=== PATIENT | male | born 1960 | race Caucasian/White ===

== ENCOUNTER 2023-11-29 12:29 | Inpatient (IN) | payer OTHER, SELFPAY ==
[2023-11-29 12:38] VITALS: BP 83/45; BP 85/55; PULSE 113; PULSE 115; RESP 15; TEMP 37.2; O2SAT 97; BMI 15.7
--- NOTE | 2023-11-29 12:53 | PC.NURSE ---
BP noted to be low on arrival to ED, Dr Grimaldo made aware.
--- NOTE | 2023-11-29 12:57 | ED_ITS ---
HPI - Fall General Chief Complaint: Fall Stated Complaint: UNWITT FALL, -LOC, -HS PER EMS Time Seen by Provider: 11/29/23 12:50 Source: patient and other Mode of arrival: EMS Limitations: other (Clinical condition) History of Present Illness HPI Narrative: This is a 63yom who is BIBEMS for evaluation after a fall. EMS states patient has a history of stage 4 liver cancer. EMS states patient was discharged from the hospital yesterday into hospice and was home for 1 day. EMS states patient was found today between a bureau and bed. Patient states his name, month and location of hospital. Patient unable to state event preceeding hospital visit. Patient states he has abdominal pain. He states no other complaints. Patient's friend, Whitney Bell, and power of attorney general states that he was just discharged from [facility] yesterday into hospice. 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 He states they just finished their conversations with hospice yesterday afternoon. He states the patient does not have any other family or friends. He states that in fact he is his employer. He states he left the patient's house yesterday at about 5pm and went to check on him today. He states he found him wedged between his dresser and his bed. He states hospice recommended he come to the hospital for inpatient hospice care. He states no workup including blood work or imaging studies are required. Lisa [facility]: [phone] Related Data Allergies Allergy/AdvReac Type Severity Reaction Status Date / Time No Known Allergies Allergy Unverified 11/29/23 12:42 [No Known Allergies*] Review of Systems Review of Systems: ROS as per HPI [facility] Social History Social History Unable to assess alcohol history related to: Unable to respond Use of substances other than those prescribed or required for medical reasons: Unable to respond Advance Directives: Yes Advance Directives on File: No Do you have a plan to hurt others: No Plan Physical Exam Vital Signs: Vital Signs: Last Vital Signs Temp 99 F 11/29/23 12:38 Pulse 113 H 11/29/23 12:38 Resp 12 11/29/23 19:16 BP 83/45 L 11/29/23 12:38 Pulse Ox 97 11/29/23 12:38 O2 Del Method Non-Rebreather Ma sk 11/29/23 12:38 Oxygen Flow Rate 10 11/29/23 12:38 BMI result Body Mass Index 15.7 Gen: NAD, alert, oriented to name, month and location of the hospital (states he thinks he is at [facility]) HEENT: NCAT, EOMI CV: RRR, 2+ bilateral radial pulses Pulm: CTAB, no increased work of breathing GI: Soft, no focal rebound, guarding or rigidity MSK: No deformity, moving all extremities spontaneously Neuro: Grossly non focal Medications Administered Discontinued Medications Generic Name Dose Route Start Last Admin Trade Name Armando PRN Reason Stop Dose Admin Morphine Sulfate 2 mg 11/29/23 13:13 11/29/23 13:42 Morphine Sulfate 2 Mg/Ml Cartridge IVPUSH 11/29/23 13:14 2 mg ONCE ONE Administration Protocol Morphine Sulfate 2 mg 11/29/23 14:25 11/29/23 14:35 Morphine Sulfate 2 Mg/Ml Cartridge IVPUSH 11/29/23 14:26 2 mg ONCE ONE Administration Protocol Oxycodone HCl 10 mg 11/29/23 14:25 11/29/23 14:39 Oxycodone Hcl Immed Release 5 Mg Tablet PO 11/29/23 14:26 Not Given ONCE ONE Medical Decision Making Medical Decision Making MDM Narrative: I called [facility] and spoke with Shasta rueda states patient was recently at [facility] for not eating/weakness. She states that he was there for a few days and wanted to go home for hospice with the understanding that he may have to return to the hospital should he fail outpatient hospice. She states that Whitney is his health care proxy, who is unable to provide care and that he has not safe continued outpatient care. She states that has hepatocellular carcinoma of the liver. She reports or provoke for IV analgesia and anxiolytics while here in the ED with further workup including blood work or imaging studies. Discussed with the case management here who is aware of patient and need for ongoing hospice care. Patient is provided 2 mg IV morphine for analgesia. Care is transitioned to Dr. Queenie Sotelo at 2100 with disposition pending reevaluation and case management consultation. Independent Historian Clinical information obtained from an independent historian. History obtained from or confirmed by: Friend Discharge Plan Discharge Clinical Impression: Hospice care patient Patient Disposition: Still a Patient Print Language: Indonesian
--- NOTE | 2023-11-29 12:59 | PC.NURSE ---
HCP at bedside with patient at this time.
--- OUTSIDE RECORDS SUMMARY | 2023-11-29 13:25 | XMS_ITS | Continuity of Care Document ---
Author Organization [facility] Address [address] [place] [address]- Care Team Providers Care Piano Mechanic Name Role Phone Dominic DOBBINS, Sekou Bowman Primary Care Physician [phone] [place] [facility] [place]23 [place] 01[place]31/23 [facility] [address] [place] [address]- Allergies, Adverse Reactions, Alerts No Known Medication Allergies Immunizations Given and Recorded Vaccine Date Status Refusal Reason tetanus/diphtheria/pertussis, acel(Tdap) 01/29/21 Given Not Given Vaccine Date Status Refusal Reason pneumococcal 23-valent vaccine 1 04/25/18 Not Give n Patient Refuses 1Result Note: already recevied at home patient said Medications acetaminophen-HYDROcodone 325 mg-5 mg oral tablet 1-2 tablet, By Mouth, Every 6 hours, PRN for pain, May partial fill [id number], # 12 tablet, 0 Refills, Maintenance, 11/14/22 9:58:00 EDT, Tablet, [facility], Partial fill upon patient request if the prescription is for a schedule II op... Start Date: 11/14/22 Status: Ordered Ambien 10 mg oral tablet 1 tablet = 10 mg, By Mouth, Daily at bedtime, PRN for sleep, 0 Refills, Maintenance, 01/29/21 8:13:00 EDT, Tablet, Partial fill upon patient request if the prescription is for a schedule II opioid drug. Start Date: 01/29/21 Status: Ordered azaTHIOprine 50 mg oral tablet 100 mg, 2, tablet, By Mouth, Daily, # 180 tablet, Refills 0, Maintenance, 04/08/20 9:55:00 EDT Start Date: 04/08/20 Status: Ordered Social History Social History Type Response Smoking Status 10 or more cigarette s (1/2 pack or more)/day in last 30 days entered on: 10/06/21 Sex Patient Care team information Care Team Personnel Name: Flakita Franco RN Position: S RN Member Role: Primary Care Nurse Name: Greta GREEN, Maribell Herrera Position: [facility] Associate Professional Member Role: Primary Care Nurse Address: Address: [address] [place] [address] Name: Sekou Alfaro MD Position: [facility] Physician - Primary Care Member Role: PCP Address: Address: [address] [place] [address], [address] Name: Edmundo REED, [place] Position: [facility] SN RN Member Role: Primary Care Nurse Care Team Related Persons Name: CORY WEEKS
--- OUTSIDE RECORDS SUMMARY | 2023-11-29 13:25 | XMS_ITS | Continuity of Care Document ---
Author Organization [facility] ter Address [address] [place] [address]- Care Team Providers Care Physician Office Specialist Name Role Phone Sekou Alfaro MD Primary Care Physician [place] [facility] [place] - 09/19/[address] [address]- Discharge Disposition: A-D/C AMA Attending Physician: Drew Monroy MD Admitting Physician: Drew Monroy MD Referring Physician: Drew Monroy MD Allergies, Adverse Reactions, Alerts No Known Medication Allergies Immunizations Given and Recorded Vaccine Date Status Refusal Reason tetanus/diphtheria/pertussis, acel(Tdap) 01/29/21 Given Not Given Vaccine Date Status Refusal Reason pneumococcal 23-valent vaccine 1 04/25/18 Not Give n Patient Refuses 1Result Note: already recevied at home patient said Medications Ambien 10 mg oral tablet 1 tablet [...] 9:55:00 EDT Start Date: 04/08/20 Status: Ordered Results Radiology Reports * Exam Date Time Procedure Performing Provider Status 09/19/22 7:37 AM IR End of Case Report Mod ified IR End of Case Report * Exam Date Time Procedure Performing Provider Status 09/19/22 8:[address] Needle [address] Kem Zavala (Verified) Notes: (US Guide Needle Place) Reason For Exam: LIVER LESIONS US Guide Needle Place Patient: PENNY FAUSTIN Study Date: 09/19/2022 Performing: Pedro Hein PA-C Referring: : 1960 Age: 62 Gender: MALE Liver Mass PROCEDURE: Ultrasound-guided biopsy of liver mass INDICATION: Liver mass, concern for HCC given history of cirrhosis. COMPARISONS: None TECHNIQUE: Informed consent was obtained. Limited ultrasound evaluation of the liver was performed. A suitable access site was identified, marked, prepped and draped in standard sterile fashion. One percent lidocaine was administered for local anesthesia. Under continuous real-time ultrasound guidance, 2 core biopsies were performed using 18-gauge super core biopsy needles. Tissue samples were submitted to pathology. A post procedure scan was performed. The patient was discharged from the radiology department in stable condition. FINDINGS: Ultrasound examination demonstrated multiple liver lesions. A right hepatic lobe mass was biopsied as described above. The post biopsy scan demonstrated no hematoma or bleeding. IMPRESSION: Successful, uncomplicated, ultrasound guided core biopsy of liver mass. Procedure types Procedure Name Code By US Guided Liver Biopsy 70231 Pedro Hein PA-C US Guided Liver Biopsy Prof [id number] Pedro Hein PA-C Ultrasound guidance for Needle Placement 89434 Pedro Hein PA-C Ultrasound guidance for Needle Placement Prof [id number] Pedro Hein PA-C 1: review complete, ready for coding [id number] Pedro Hein PA-C Agent Dose Route Time By Versed 2 mg IV 08:08:03 Signed By Pedro Hein PA-C On 09/19/2022 09:32:20 Larry Hayden MD, Adam PA-C Dictated By: Pedro Huggins Dictated Date/Time: 09/19/22 7:37 am Reviewed By: Pedro Huggins Signed By: Pedro Huggins Signed Date/Time: 09/19/22 8:22 am Transcribed By: INES Transcribed Date/Time: 09/19/22 8:22 am Vital Signs Most recent to oldest [Reference Range]: 1 Height 163 cm (09/19/22 6:19 AM) Weight 54 kg (09/19/22 6:19 AM) Oxygen Saturation [94-100 %] 97 % (09/19/22 6:18 AM) Pulse Rate [55-90 bpm] 79 bpm (09/19/22 6:18 AM) Blood Pressure [90-138/55-84 mm Hg] 173/ 84mm Hg *H* (09/19/22 6:18 AM) Respiratory Rate [16-30 br/min] 20 br/mi n (09/19/22 6:18 AM) Temperature [96.8-100.4 DegF] 98.1 DegF (09/19/22 6:18 AM) Mode of Delivery (Oxygen) Room air (09/19/22 6:18 AM) Dry Weight 54 kg (09/19/22 6:19 AM) Social History Social History Type Response Smoking Status 10 or more cigarette s (1/2 pack or more)/day in last 30 days entered on: 10/06/21 Sex Hospital Progress note * Pedro Bishop RN: SIGN, MODIFY, SIGN, MODIFY, SIGN, MODIFY, PERFORM, SIGN, VERIFY Event Display: Progress Note Hospital Authored Date: [id number] Patient: PENNY FAUSTIN Age: 62 years Sex: Male : 1960 Associated Diagnoses: None Author: Pedro Bishop RN Findings Evaluation Patient arrived to unit, VSS. #22 IV inserted in left forearm, labs drawn, IV fluids started. Medical daystay assessment, home med review, and pre-procedure checklist completed. Resting comfortably awaiting procedure. Will continue to monitor. . * Pedro Bishop RN: PERFORM Event Display: Progress Note Hospital Authored Date: [id number] Returned from procedure. VSS. Bandaid to right abdomen CDI. No signs or symptoms of bleeding or hematoma. Will continue to monitor. * Pedro Bishop RN: PERFORM Event Display: Progress Note Hospital Authored Date: [id number] Patient refusing to wait until 12:30 discharge time. Patient educated on risks of leaving early anddanger of bleeding post-procedure. Procedure area and PA made aware. IV d/c'd. Discharge instructions reviewed and signed. Questions asked and answered. AMA paperwork signed. Declined wheelchair. Ambulated off unit. * Pedro Bishop RN: PERFORM Event Display: Progress Note Hospital Authored Date: [id number] Upon patient leaving, bandaid to right abdomen still CDI. No signs or symptoms of bleeding or hematoma. Note * Pedro Bishop RN: PERFORM Event Display: Discharge/Transfer Note Hospital Authored Date: [id number] Nursing Discharge Note Entered On: 09/19/2022 11:11 EDT Performed On: 09/19/2022 11:11 EDT by Pedro Bishop RN Nursing Discharge Note 2 Discharge Time : 09/19/2022 11:11 EDT Discharge Level of Care at Discharge : Home/Fci/Foster Care Patient Left Unit Via : Ambulatory Patient Accompanied Off Unit with : Responsible adult DC Instructions Provided & Signed by Pt : Yes Patient Understands D/C Instructions : Yes Patient Instructions Discharge Signed : Yes Did Pt have Specialty Bed or Wound Vac : No Pedro Bishop RN - 09/19/2022 11:11 EDT * Event Display: IR End of Case Report * Pedro Huggins: PERFORM, TRANSCRIBE, VERIFY, VERIFY Event Display: Result: Authored Date: [id number] Patient: PENNY FAUSTIN Study Date: 09/19/2022 Performing: Pedro Hein PA-C Referring: : 1960 Age: 62 Gender: MALE Liver Mass PROCEDURE: Ultrasound-guided biopsy of liver mass INDICATION: Liver mass, concern for HCC given history of cirrhosis. COMPARISONS: None TECHNIQUE: Informed consent was obtained. Limited ultrasound evaluation of the liver was performed. A suitable access site was identified, marked, prepped and draped in standard sterile fashion. One percent lidocaine was administered for local anesthesia. Under continuous real-time ultrasound guidance, 2 core biopsies were performed using 18-gauge super core biopsy needles. Tissue samples were submitted to pathology. A post procedure scan was performed. The patient was discharged from the radiology department in stable condition. FINDINGS: Ultrasound examination demonstrated multiple liver lesions. A right hepatic lobe mass was biopsied as described above. The post biopsy scan demonstrated no hematoma or bleeding. IMPRESSION: Successful, uncomplicated, ultrasound guided core biopsy of liver mass. Procedure types Procedure Name Code By US Guided Liver Biopsy 71515 Pedro Hein PA-C US Guided Liver Biopsy Prof [id number] Pedro Hein PA-C Ultrasound guidance for Needle Placement 44046 Pedro Hein PA-C Ultrasound guidance for Needle Placement Prof [id number] Pedro Hein PA-C 1: review complete, ready for coding 44012 Pedro Hein PA-C Agent Dose Route Time By Versed 2 mg IV 08:08:03 Signed By Pedro Hein PA-C On 09/19/2022 09:32:20 Larry Hayden MD, Adam PA-C Dictated By: Pedro Huggins Dictated Date/Time: 09/19/22 7:37 am Reviewed By: Pedro Huggins Signed By: Pedro Huggins Signed Date/Time: 09/19/22 8:22 am Transcribed By: INES Transcribed Date/Time: 09/19/22 8:22 am Patient Care team information Care Team Personnel Name: Flakita Franco RN Position: S RN Member Role: Primary Care Nurse Name: Maribell Hernandes NP Position: [facility] Associate Professional Member Role: Primary Care Nurse Address: Address: [address] [place] [address]- [place] Name: Sekou Alfaro MD Position: [facility] Physician (General Medicine) Member Role: PCP Address: Address: [address] [place] [address], [address] [place] [address]- Name: Edmundo REED [place] Position: [facility] RN Member Role: Primary Care Nurse Care Team Related Persons Name: JYOTI KURTZ Address: home [address] [place] [address]
--- OUTSIDE RECORDS SUMMARY | 2023-11-29 13:25 | XMS_ITS | Patient Health Record ---
Author Organization [facility] Address [address] [place] [address] Care Team Providers Care Splicer Apprentice Name Role Phone MICHELE CALIXTO D.O Primary Care Provider Nina Monroy Jr Drew Unavailable ALLERGIES No Known Allergies REASON FOR REFERRAL No Information MEDICATIONS Medication SIG (Take, Route, Fr equency, Duration) Notes Start Date End Date Status metroNIDAZOLE 500 MG Oral for 10 Active Albuterol Active Loperamide HCl 2 MG 1 capsule as needed Orally Four times a day Active azaTHIOprine 50 MG TAKE 2 TABLETS BY [facility] ONCE DAILY for 30 days Active Vancomycin HCl 125 MG TAKE ONE CAPSULE B Y MOUTH EVERY 6 HOURS FOR 10 DAYS Oral for 10 Active Zolpidem Tartrate 5 MG Oral for 30 Active oxyCODONE HCl 10 MG Oral for 6 Active IMMUNIZATIONS Vaccine Route Administration Date Status Comme nts Influenza Unknown 03/05/2018 Administered Influenza Unknown 03/24/2021 Administered Influenza Unknown 05/14/2022 Administered Influenza Unknown 04/16/2023 Administered SOCIAL HISTORY Tobacco Use: Social History Observation Description Date Details (start date - stop date) Current Smoker NA - NA Sex Assigned At : Social History Observation Description Sex Assigned At Unknown Tobacco Use/Smoking Question Answer Notes Patient is a current smoker How often do you smoke cigarettes? every day How many cigarettes a day do you smoke? 6-10 How soon after you wake up do you smoke your fir st cigarette? 6-30 minutes Are you interested in quitting? Ready to quit Alcohol Screen Question Answer Notes Did you have a drink containing alcohol in the p ast year? No Points 0 Interpretation Negative PROBLEMS Problem Type ICD Code Onset Dates Problem Status W/U Status Risk SNOMED Code Notes Problem Elevated LFTs (R79.89) Active confirmed 159475569 Problem Chronic hepatitis C (B18.2) Active confirmed Chronic hepatit is C (976218018) Problem Liver lesion (K76.9) Active confirmed 680896568 Problem Abnormal MRI, liver (R93.2) Active confirmed 028884702 Problem History of hepatitis C (Z86.19) Active confirmed 91818677733930 Problem Abnormal CT scan, liver (R93.2) Active confirmed 14997882304311442 Problem Elevated lipase (R74.8) Active confirmed 501644845 Problem Crohn''s disease without complication, unspecified gastrointestinal tract location (K50.90) Active confirmed 57629493 Problem Crohn's disease without complication, unspecified gastrointestinal tract location (K50.90) Active confirmed 07397101 Problem C. difficile diarrhea (A04.72) Active confirmed 4487932102918 Problem Hepatocellular carcinoma (C22.0) Active confirmed 732917600 VITAL SIGNS Temperature 97.8 degrees Fahrenheit 11/13/2023 Weig ht is down 15 pounds from 09/13 Blood pressure diastolic 00 mm Hg 11/13/2023 Alfred ght is down 15 pounds from 09/13 Height 64 in 11/13/2023 Weight is down 15 pounds from 09/13 Blood pressure systolic 000 mm Hg 11/13/2023 Weig ht is down 15 pounds from 09/13 Weight 105 lbs 11/13/2023 Weight is down 15 pounds from 09/13 BMI 18.02 kg/m2 11/13/2023 Weight is down 15 pounds from 09/13 Encounters Encounter Location Date Provider Diagnosis [facility] [address] [place] [address] 11/13/2023 Drew Monroy Jr Crohn''s disease without complication, unspecified gastrointestinal tract location K50.90 ; C. difficile diarrhea A04.72 and Hepatocellular carcinoma C22.0 [facility] [address] [place] [address] 11/12/2023 Drew Monroy Jr [facility] [address] [place] [address] 11/14/2023 Drew Monroy Jr [facility] [address] [place] [address] 11/14/2023 Drew Monroy ASSESSMENTS Encounter Date Diagnosis Assessment Notes Treatment Notes Treatment Clinical Notes 11/13/2023 Crohn''s disease without complication, unspecified gastrointestinal tract location (ICD-10 - K50.90) 11/13/2023 C. difficile diarrhe a (ICD-10 - A04.72) 11/13/2023 Hepatocellular carcinoma (ICD-10 - C22.0) PLAN OF TREATMENT Pending Test Test Name Order Date LIVER PROFILE 03/26/2022 LIVER PROFILE 08/13/2018 LIVER PROFILE 04/18/2022 LIVER PROFILE 04/22/2020 LIVER PROFILE 08/14/2022 LIVER PROFILE 03/10/2020 LIVER PROFILE 10/20/2018 LIVER PROFILE 10/11/2018 AMYLASE 03/26/2022 AMYLASE 04/18/2022 LIPASE 10/11/2018 LIPASE 03/26/2022 LIPASE 04/18/2022 CRP 08/13/2018 CRP 03/10/2020 CRP 03/26/2022 CEA 08/14/2022 CBC w DIFF 08/14/2022 CBC w DIFF 04/18/2022 CBC with MANUAL DIFFERENTIAL 08/13/2018 CBC w/o DIFF 10/11/2018 CBC w/o DIFF 04/22/2020 CBC w/o DIFF 10/20/2018 CBC w/o DIFF 03/10/2020 SED RATE (ESR) 08/13/2018 SED RATE (ESR) 03/26/2022 SED RATE (ESR) 03/10/2020 PROTHROMBIN TIME (PT, INR) 08/14/2022 PARTIAL THROMBOPLASTIN TIME (PTT) 2022 CLOSTRIDIUM DIFF TOXIN A&B (C DIFF) 07/26 STOOL WBC 11/13/2023 STOOL WBC 08/13/2018 ALPHA-FETOPROTEIN,TUMOR MARKER 3 CA 19-9 08/14/2022 HEPATITIS C VIRAL LOAD 03/10/2020 HEPATITIS C VIRAL LOAD 08/14/2022 HEPATITIS C VIRAL LOAD 04/22/2020 HEPATITIS C VIRAL LOAD 10/20/2018 HEPATITIS C VIRAL LOAD 07/28/2020 HEPATITIS C GENOTYPE 10/20/2018 GIARDIA AG, STOOL EIA 08/13/2018 OVA & PARASITES (O&P) 08/13/2018 CULTURE, STOOL 08/13/2018 CT ABD NO CONTRAST 08/30/2022 CT ABD & PELVIS WITH CONTRAST 05/04/2022 MRI ABD W&WO CONTRAST 06/14/2022 HCV LIVER FIBROSIS, FIBRO TEST 9 C DIFFICILE RFLX PCR 11/13/2023 CALPROTECTIN, STOOL 11/13/2023 CBC & MANUAL DIFFERENTIAL 03/26/2022 GI PANEL 11/13/2023 Insurance Providers Payer Name Payer Address Payer Phone Subscriber Number Group Number Insured Name Patient Relationship to Insured Coverage Start Date Coverage End Date [facility] [address] [address] [place], [place] [id number] PENNY FAUSTIN Self - patient is the insured MEDICAL (GENERAL) HISTORY Medical History History ICD Code COPD hepatitis C genotype 1A, F2 fibrosis 11/09, SVR s/p Harvoni x8 weeks, May 2020 Crohn's disease, colonic inv olvement, diagnosed? 2016, previous therapy with budesonide, colonoscopy 10/10; relative sparing of cecum and rectum, colonic involvement, restarted Imuran therapy 03/13, colonoscopy 08/17 at [place], normal terminal ileum, jean colitis, prednisone, azathioprine continued. Azathioprine stopped by patient in 2023, date unclear, restarted 11/14. Cirrhosis and hepatocellular carcinoma, diagnosed 09/13 ,most recent treatment with lenvatnib after initial treatment with atezolizdeedeeb, Dr. Ruiz. DVT Surgical History Surgery Date(Month/Year) knee surgery-left 2015
--- OUTSIDE RECORDS SUMMARY | 2023-11-29 13:25 | XMS_ITS | Continuity of Care Document ---
Author Organization [facility] Address [address] [place] [address]- Care Team Providers Care Lead Systems Analyst Name Role Phone Dominic DOBBINS, Sekou Bowman Primary Care Physician [phone] [place] [facility] [place]02[place]23 - 02/21/23 [facility] [address] [place] [address]- Attending Physician: Jackelyn DOBBINS, Larry Admitting Physician: Jackelyn DOBBINS, Larry Referring Physician: Santi Paredes MD Allergies, Adverse Reactions, Alerts No Known Medication Allergies Immunizations Given and Recorded Vaccine Date Status Refusal Reason tetanus/diphtheria/pertussis, acel(Tdap) 01/29/21 Given Medications acetaminophen-HYDROcodone 325 mg-5 mg oral tablet 1-2 tablet, By Mouth, Every 6 hours, PRN for pain, May partial fill [id number], # 12 tablet, 0 Refills, Maintenance, 11/14/22 [...] Care Nurse Name: Maribell Hernandes NP Position: [facility] Associate Professional Member Role: Primary Care Nurse Address: Address: [address] [place] [address] Name: Sekou Alfaro MD Position: [facility] Physician - Primary Care Member Role: PCP Address: Address: [address] [place] [address], [address] [place], [place] [address] Name: Edmundo REED, [place] Position: [facility] SN RN Member Role: Primary Care Nurse Care Team Related Persons Name: CORY WEEKS
--- OUTSIDE RECORDS SUMMARY | 2023-11-29 13:25 | XMS_ITS | Continuity of Care Document ---
Author Organization [facility] ter Address [address] [place] [id number]- Care Team Providers Care Manager Research Name Role Phone Sekou Alfaro MD Primary Care Physician [phone] [place] [facility] [place] - 09/20/[address] [address]- Encounter Diagnosis History of liver biopsy(Final) - 09/20/22 Abdominal pain(Final) - 09/20/22 Cirrhosis(Final) - 09/20/22 Liver mass(Final) - 09/20/22 Discharge Disposition: A-D/C Home Attending Physician: Angela Eckert MD Admitting Physician: Angela Eckert MD Referring Physician: Not on Staff, Referring MD Allergies, Adverse Reactions, Alerts No Known [...] 9:55:00 EDT Start Date: 04/08/20 Status: Ordered MorPHINE Inj 4 mg, Injection, IV Push Slowly, Every 5 minutes for 3 doses/times, PRN for Pain , Moderate, and SBP greater than 100, Routine, 09/20/22 14:36:00 EDT, Stop date Limited # of times Start Date: 09/20/22 Stop Date: 09/20/22 Status: Discontinued oxyCODONE 5 mg oral tablet 5 mg, 1, tablet, By Mouth, Every 6 hours, PRN, for 2 days, # 5 tablet, Refills 0, Tot. Refills 0, Acute 09/22/22 16:52:00 EDT, as needed for pain, 09/20/22 16:52:00 EDT, Route to Pharmacy Electronically, [id number], Partial fill upon pat... Start Date: 09/20/22 Stop Date: 09/22/22 Status: Ordered Results Radiology Reports * Exam Date Time Procedure Performing Provider Status 09/20/22 4:[address] Abd/Pelvis W/ IV Contrast Only Valerio Torres; Auth (Verified) Notes: (CT Abd/Pelvis W/ IV Contrast Only) Reason For Exam: RUQ abdominal pain- s/p liver biopsy yesterday;Other: RESULT: CT Abd/Pelvis W/ IV Contrast Only CT Abd/Pelvis W/ IV Contrast Only Reason: Other:; RUQ abdominal pain- s p liver biopsy yesterday; Clinical Question(s): Hemorrhage Hematoma. TECHNIQUE: Spiral CT through the abdomen and pelvis with IV contrast formatted in 3 planes. 100 cc of Omnipaque 300 was administered intravenously. This study was performed without oral contrast. Weight-based protocol using automatic tube modulation was used to optimize exposure parameters. CTDIvol Body: 11.60 mGy, DLP Body: 514 mGy*cm. COMPARISON: Ultrasound-guided needle placement images dated 09/19/2022 and abdominal MRI dated 08/11/2022. Correlation is also made with CT of the abdomen and pelvis dated 06/01/2022 FINDINGS: Night Auditor View Findings, Lines and Tubes: None. Visualized Chest: Lung bases are clear. No pleural effusion. The heart is normal in size. No pericardial effusion. Diaphragm: Normal. Liver: Heterogeneous lesion in the subcapsular left hepatic lobe measuring approximately 1.7 x 2.8 cm. Mildly enhancing location in the subcapsular lateral aspect of the right hepatic lobe measuring approximately 3.7 cm. There are several additional small hypodense lesions. Gallbladder: No CT evidence of gallbladder pathology. Bile ducts: No biliary ductal dilation. Spleen: Normal. Pancreas: Normal. Adrenal glands: Normal. Kidneys and ureters: 3 mm nonobstructing calculus in the upper pole the right kidney. No hydronephrosis or suspicious masses. Bladder: Normal. Reproductive organs: Unremarkable. Stomach, small bowel, and large bowel: The stomach is fairly decompressed. There are several loops of fluid-filled proximal to mid small bowel which demonstrate mild wall thickening. The degree of wall thickening appears less pronounced than on 06/01/2022. No adjacent fat stranding. The remainder ofthe small bowel appears unremarkable. There is sigmoid mild diverticulosis with no evidence of diver ticulitis. Appendix: Normal. Peritoneum and retroperitoneum: No evidence of perihepatic hemorrhage. No ascites or pneumoperitoneum. No omental or mesenteric lesions. Lymph nodes: No enlarged lymph nodes. Blood vessels: Multiple varices are seen adjacent to the gastric fundus. No aneurysm. No evidence of venous thrombosis. Abdominal and pelvic wall: Unremarkable. Bones: No acute abnormality. Sclerosis in both femoral heads is seen, compatible with osteonecrosis. Mild degenerative changes seen in the spine. IMPRESSION: 1. Multiple liver lesions, better seen on the recent MRI with no evidence of perihepatic hemorrhageto suggest postprocedural hemorrhage. 2. Cirrhotic morphology of the liver multiple varices adjacent to the gastric fundus. 3. Several fluid-filled loops of small bowel which demonstrate mild wall thickening, decreased fromthe prior examination with no adjacent inflammatory change which may reflect mild enteritis or reflect portal congestion. WSN: [id number] Ordering Physician: Yessi Harman Dictated By: Rosa Chang MD Dictated Date/Time: 09/20/22 4:40 pm Reviewed By: Rosa Chang MD Signed By: Rosa Chang MD Signed Date/Time: 09/20/22 4:40 pm Transcribed By: REYMUNDO Transcribed Date/Time: 09/20/22 4:24 pm Vital Signs Most recent to oldest [Reference Range]: 1 2 Oxygen Saturation [94-100 %] 97 % (09/20/22 2:15 PM) Pulse Rate [55-90 bpm] 85 bpm (09/20/22 2:15 PM) Blood Pressure [90-138/55-84 mm Hg] 150/ 82mm Hg *H* (09/20/22 2:15 PM) Respiratory Rate [16-30 br/min] 30 br/mi n (09/20/22 2:40 PM) 24 br/min (09/20/22 2:15 PM) Temperature [96.8-100.4 DegF] 98.1 DegF (09/20/22 2:15 PM) Mode of Delivery (Oxygen) Room air (09/20/22 2:15 PM) Temperature Route Oral (09/20/22 2:15 PM) Weight Obtained Via UTO (09/20/22 2:05 PM) Dry Weight Obtained Via UTO (09/20/22 2:05 PM) Social History Social History Type Response Smoking Status 10 or more cigarette s (1/2 pack or more)/day in last 30 days entered on: 10/06/21 Sex Note * Kimani DOBBINS, Yessi J: PERFORM, SIGN, VERIFY Event Display: Patient Education Handout Authored Date: [id number] CT Abdomen and Pelvis W contrast IV * [facility] , CIS S: TRANSCRIBE Bernardo DOBBINS, Rosa Ventura: VERIFY Event Display: Result: Authored Date: [id number] CT Abd/Pelvis W/ IV Contrast Only Reason: Other:; RUQ abdominal pain- s p liver biopsy yesterday; Clinical Question(s): Hemorrhage Hematoma. TECHNIQUE: Spiral CT through the abdomen and pelvis with IV contrast formatted in 3 planes. 100 cc of Omnipaque 300 was administered intravenously. This study was performed without oral contrast. Weight-based protocol using automatic tube modulation was used to optimize exposure parameters. CTDIvol Body: 11.60 mGy, DLP Body: 514 mGy*cm. COMPARISON: Ultrasound-guided needle placement images dated 09/19/2022 and abdominal MRI dated 08/11/2022. Correlation is also made with CT of the abdomen and pelvis dated 06/01/2022 FINDINGS: Night Auditor View Findings, Lines and Tubes: None. Visualized Chest: Lung bases are clear. No pleural effusion. The heart is normal in size. No pericardial effusion. Diaphragm: Normal. Liver: Heterogeneous lesion in the subcapsular left hepatic lobe measuring approximately 1.7 x 2.8 cm. Mildly enhancing location in the subcapsular lateral aspect of the right hepatic lobe measuring approximately 3.7 cm. There are several additional small hypodense lesions. Gallbladder: No CT evidence of gallbladder pathology. Bile ducts: No biliary ductal dilation. Spleen: Normal. Pancreas: Normal. Adrenal glands: Normal. Kidneys and ureters: 3 mm nonobstructing calculus in the upper pole the right kidney. No hydronephrosis or suspicious masses. Bladder: Normal. Reproductive organs: Unremarkable. Stomach, small bowel, and large bowel: The stomach is fairly decompressed. There are several loops of fluid-filled proximal to mid small bowel which demonstrate mild wall thickening. The degree of wall thickening appears less pronounced than on 06/01/2022. No adjacent fat stranding. The remainder ofthe small bowel appears unremarkable. There is sigmoid mild diverticulosis with no evidence of diver ticulitis. Appendix: Normal. Peritoneum and retroperitoneum: No evidence of perihepatic hemorrhage. No ascites or pneumoperitoneum. No omental or mesenteric lesions. Lymph nodes: No enlarged lymph nodes. Blood vessels: Multiple varices are seen adjacent to the gastric fundus. No aneurysm. No evidence of venous thrombosis. Abdominal and pelvic wall: Unremarkable. Bones: No acute abnormality. Sclerosis in both femoral heads is seen, compatible with osteonecrosis. Mild degenerative changes seen in the spine. IMPRESSION: 1. Multiple liver lesions, better seen on the recent MRI with no evidence of perihepatic hemorrhageto suggest postprocedural hemorrhage. 2. Cirrhotic morphology of the liver multiple varices adjacent to the gastric fundus. 3. Several fluid-filled loops of small bowel which demonstrate mild wall thickening, decreased fromthe prior examination with no adjacent inflammatory change which may reflect mild enteritis or reflect portal congestion. WSN: [id number] Ordering Physician: Yessi Harman Dictated By: Rosa Chang MD Dictated Date/Time: 09/20/22 4:40 pm Reviewed By: Rosa Chang MD Signed By: Rosa Chang MD Signed Date/Time: 09/20/22 4:40 pm Transcribed By: REYMUNDO Transcribed Date/Time: 09/20/22 4:24 pm Patient Care team information Care Team Personnel Name: Flakita Franco RN Position: [facility] RN Member Role: Primary Care Nurse Name: Maribell Hernandes NP Position: [facility] Associate Professional Member Role: Primary Care Nurse Address: Address: [address] [place] [address] Name: Sekou Alfaro MD Position: [facility] Physician (General Medicine) Member Role: PCP Address: Address: [address] [place] [address], [address] [place] [address]- Name: Edmundo RNRachel Position: [facility] SN RN Member Role: Primary Care Nurse Name: Angela Eckert MD Position: [facility] ED Medicine MD Member Role: Admitting Physician Address: Address: [address] [place] [address]- Name: Yessi Harman MD Position: [facility] Resident Member Role: ED Resident Address: Address: [address] [place] [id number]- Name: Rupesh Ryder RN Position: [facility] ED RN W/OE and Tasks Member Role: Patient Care Provider Name: Samantha Newman Position: [facility] ED TA [facility] Member Role: Patient Care Provider Care Team Related Persons Name: JYOTI KURTZ Address: home [address] [place] [address]
--- OUTSIDE RECORDS SUMMARY | 2023-11-29 13:25 | XMS_ITS | Continuity of Care Document ---
Author Organization [facility] Address [address] [place] [address]- Care Team Providers Care Consumer Services Advisor Name Role Phone Sekou Alfaro MD Primary Care Physician [phone] Encounter [facility] [place] Date(s): 01/22/23 - 02/21/23 [facility] [address] [place], [place] [address] Attending Physician: Sindhu Piper Admitting Physician: AdmtrSindhu Referring Physician: Admtr, Ar8 Allergies, Adverse Reactions, Alerts No Known Medication Allergies Immunizations Given and Recorded Vaccine Date Status Refusal Reason tetanus/diphtheria/pertussis, acel(Tdap) 01/29/21 Given Medications acetaminophen-HYDROcodone 325 mg-5 mg oral tablet 1-2 tablet, By Mouth, Every 6 hours, PRN for pain, May partial fill [id number], # 12 tablet, 0 Refills, Maintenance, 11/14/22 [...] Care team information Care Team Personnel Name: Joan REED, Flakita Position: S RN Member Role: Primary Care Nurse Name: Greta GREEN, Maribell Herrera Position: [facility] Associate Professional Member Role: Primary Care Nurse Address: Address: [address] [place] [id number] Name: Sekou Alfaro MD Position: [facility] Physician - Primary Care Member Role: PCP Address: Address: [address] [place] [address], [address] [place], [place] [address] Name: Edmundo REED, [place] Position: [facility] RN Member Role: Primary Care Nurse Care Team Related Persons Name: CORY WEEKS
--- NOTE | 2023-11-29 13:39 | MHC.CM.ED ---
Addendum entered by Claudia Manrique 11/29/23 16:28: [facility] RESPONDED SAYING THEY HAVE TO CONTACT [facility] TO DETERMINE IF THAT IS WHO PT IS CONTRACTED WITH HOWEVER THEY WILL NOT BE ABLE TO DO SO UNTIL SATURDAY Original Note: VIANEY SPOKE TO [facility] DIRECTOR WHO REPORTS THIS PT WAS AT HOME WITH [facility] HOWEVER DID NOT HAVE 24/ CARE AND WAS FOUND ON THE FLOOR PT TRANSPORTED HERE FOR RESPITE WHILE LTC PLACEMENT IS ARRANGED REFERRAL SENT TO [facility] WHO HAS INDICATED THEY DO HAVE OPEN BEDS AWAITING RESPONSE
[2023-11-29] MEDS: Morphine Sulfate 2 MG/ML CARTRIDGE IVPUSH ×2 (13:42→14:35)
--- NOTE | 2023-11-29 13:53 | PC.NURSE ---
Patient complaining of bone pain, IV established and morphine administered per MAR. HCP Whitney Bell at bedside, HCP would like to be notified of any changes to patient condition. Number [phone]
--- NOTE | 2023-11-29 14:39 | PC.NURSE ---
Patient arrived from main ED, alert only to painful stimuli, unable to safely swallow po oxycodone held, medicated per aug . Friend at bedside
--- NOTE | 2023-11-29 15:58 | PC.NURSE ---
Resting comfortably in bed, without s/s of pain or discomfort. Turned and repositioned
--- NOTE | 2023-11-29 17:56 | PC.NURSE ---
Patient resting comfortably , breathing even and unlabored
[2023-11-29 19:16] VITALS: RESP 12
--- NOTE | 2023-11-29 19:16 | PC.NURSE ---
assumed care of pt at this time. pt appears to be resting comfortably in bed, resp 12 breaths/min. call pereira within reach.
--- NOTE | 2023-11-29 21:06 | PC.NURSE ---
pt helped to bedside commode per pt request, steady on feet with 1-2 assist. pt had small soft bm. gown and pants changed as pt was previously incontinent, assisted with audrey care. pt is axox3, unsure of year. resp even and unlabored. reports 10/10 pain, no prns available at this time. Dr. Sotelo made aware. call pereira within reach. warm blankets provided.
[2023-11-29] MEDS: Morphine Sulfate Oral Sol 10 MG/5 ML SOLUTION PO (22:06)
--- NOTE | 2023-11-29 22:10 | PC.NURSE ---
pt medicated per mar tolerated po morphine. pain level 10/10, MD aware. pt resting comfortably in bed. call pereira within reach.
[2023-11-29 23:06] VITALS: RESP 15
[2023-11-30 02:25] VITALS: RESP 14
[2023-11-30 07:38] VITALS: BP 98/65; PULSE 85; RESP 16; TEMP 36.3; O2SAT 97
--- NOTE | 2023-11-30 08:42 | PC.NURSE ---
pt noted to have no diet order placed. covering PA notified/aware. per pt - no dietary restrictions needed. tray ordered/delivered from kitchen. when placing pt in a comfortable position to eat - pt notified this RN that he was missing his upper/lower dentures as well as his cell phone. belongings bag checked but missing items not found. belongings list not in worklist from ED. pt verbalizes that he remembers having these items while in the hospital and that he did not leave them at home prior to EMS arriving.
[2023-11-30] MEDS: Morphine Sulfate Oral Sol 10 MG/5 ML SOLUTION PO ×2 (09:12→14:35)
[2023-11-30] MEDS: Sennosides 8.6 MG TABLET PO (09:12)
--- NOTE | 2023-11-30 09:12 | MHC.EDTECH ---
Breakfast tray given
--- NOTE | 2023-11-30 09:15 | PC.NURSE ---
pt verbalizing increase in generalized pain. pt medicated per provider order. effectiveness pending. pt remains on 4L via NC. no sob/wob noted. respirations even/unlabored. repositioned to comfort. call pereira placed within reach.
--- NOTE | 2023-11-30 09:30 | MHC.EDTECH ---
Patient given complete bed bath and bed changed
--- NOTE | 2023-11-30 10:17 | PC.NURSE ---
this RN reached out to pt's HCP - missing personal items identified/in a safe place at home.
--- NOTE | 2023-11-30 11:18 | PC.NURSE ---
HCP dropped off pt's cell phone and dentures. pt currently speaking w/ hospice merchandising team lead at this time.
--- NOTE | 2023-11-30 14:35 | PC.NURSE ---
pt verbalizing increase in pain. medication administered per provider order. effectiveness pending.
--- NOTE | 2023-11-30 14:48 | PC.NURSE ---
pt remained a&ox4 throughout this pattern chart writer's entire shift. pt no longer on O2. pt verbalizing he is not on O2 via baseline. resting on RA w/o difficulty. no sob/wob noted. respirations even/unlabored. pt was a 1:1 assist to the commode. pt had a large formed BM earlier during the shift. ate approx 50% of breakfast/lunch tray. pt repositioned to comfort multiple times. pt medicated per MAR throughout shift. pt calm/cooperative/pleasant.
[2023-11-30] MEDS: Morphine Sulfate Oral Sol 10 MG/5 ML SOLUTION SUBLINGUAL ×2 (18:23→21:20)
[2023-11-30 21:26] VITALS: BP 119/79; PULSE 100; RESP 24; TEMP 36.8; O2SAT 91
[2023-12-01 06:06] VITALS: BP 112/69; PULSE 97; RESP 20; TEMP 36.6; O2SAT 90
--- NOTE | 2023-12-01 08:15 | MHC.EDTECH ---
gave patient breakfast but he stated he would like to keep sleeping.
[2023-12-01] MEDS: Morphine Sulfate Oral Sol 10 MG/5 ML SOLUTION SUBLINGUAL ×2 (09:22→09:23)
--- NOTE | 2023-12-01 09:28 | MHC.EDTECH ---
patient urinated in bed and needed to be cleaned. patient was cleaned and the bedding was cleaned and changed.
[2023-12-01] MEDS: Morphine Sulfate 4 MG/ML CARTRIDGE IVPUSH (09:45)
--- NOTE | 2023-12-01 09:49 | PC.NURSE ---
patient only ingested about 5ml of his liquid Morphine, tasted too bad , new order obtained from RUNSTITCHING MACHINE OPERATOR for MS 4mg IVP
--- NOTE | 2023-12-01 11:54 | MHC.CM.ED ---
Patient remains in ER overflow. Alina REED from [facility] on-site. Patient has required IV Morphine. Will stay in ER overflow overnight night. If IV Morphine is still required will be admitted under GIP. Continue to monitor for d/c needs.
--- NOTE | 2023-12-01 17:38 | PC.NURSE ---
patient is refusing any form of pain medication at this time and has been sleeping most of the shift. Refusing any food intake all shift, drinking only small amounts. has phlegm in his throat that he is sometimes able to bring up.
[2023-12-01 18:23] VITALS: BP 138/81; PULSE 104; RESP 18; O2SAT 91
--- NOTE | 2023-12-01 22:58 | PC.NURSE ---
Patient getting up to use urinal multiple times, patient tachypneic and seemingly in pain during interactions. Patient offered pain medications multiple times with patient refusing it each time.
[2023-12-02 04:04] VITALS: BP 106/72; PULSE 72; RESP 16; TEMP 36.9; O2SAT 93
--- NOTE | 2023-12-02 04:04 | MHC.EDTECH ---
Patient have watery diarrhea several times ,care given each times and bedding change ,fresh mitesh priscilla given .
[2023-12-02] MEDS: Morphine Sulfate Oral Sol 10 MG/5 ML SOLUTION SUBLINGUAL ×4 (04:45→16:44)
--- NOTE | 2023-12-02 04:49 | PC.NURSE ---
pt requesting pain medication. medicated per MAR
[2023-12-02] MEDS: Midazolam HCl Oral Syrup 5 MG/2.5 ML SYRUP 2 MG PO (13:51)
--- NOTE | 2023-12-02 15:03 | MHC.CM.PN ---
For clarification- patient has [email or web address] insurance with no senior living benefit or correction benefit.
--- NOTE | 2023-12-02 18:29 | PC.NURSE ---
Pt A/Ox3. Soft spoken, able to make needs known. Liquid stools, mixed continence. Medicated with morphine PRN. Updated HCP. bindery production manager, LAMP REPLACER and bisque placer in to see pt
--- NOTE | 2023-12-02 18:56 | MHC.CM.ED ---
CM attempted to meet with patient. Pt sleeping soundly. Spoke with primary RN. Tells CM that HCP was in earlier and the patient told him he was in pain. Nurse said she asked patient about pain and he denied pain. She states she will medicate q2-3 hours. Also given dose of versed for agitation. Primary RN tells CM that patient is not swallowing well. Pt is cachetic. CM spoke with Anthony ESPINOZA. Will order a swallow evaluation. CM following for discharge planning.
--- NOTE | 2023-12-02 19:05 | PC.NURSE ---
this rn assumed care of pt, pt resting in stretcher; eyes closed, no acute distress noted. respirations even and unlabored.
[2023-12-02 19:33] VITALS: RESP 18
--- NOTE | 2023-12-02 20:57 | PC.NURSE ---
at bedside to assess pt.
--- NOTE | 2023-12-02 21:01 | MHC.CM.ED ---
Per Rosamaria Hall, patient will be an admit. for WIRE FENCE BUILDER. Provider Anthony ESPINOZA aware of [place] communications. He will speak with hospitalist. CM will follow.
--- NOTE | 2023-12-02 21:44 | P.HPHOSP_ITS ---
History of Present Illness Date of Service: 12/02/23 Attending physician on admission: Jack York Chief Complaint: Abdominal pain Heber Oscar is a 63 years old man with stage IV liver cancer that was brought to the emergency department 3 days ago after he fell. He was found by his health proxy wedge between his dresser and his bed. The patient was recently discharged from [facility] on hospice care. I spoke with patient's health proxy, Whitney Bell, and wishes Heber to be comfortable only. Mr. Bell was upset and expressed his concern as he feels Heber is not comfortable enough and wants him to receive morphine scheduled and not as needed. Review of Systems Review of Systems: Yes Unobtainable due to mental condition [facility] Medical History Liver cancer Social History Household Members: Unknown / Unable to assess and Other Housing: Unknown / Unable to assess Do you presently have visiting nurse or other home services: No Unable to assess alcohol history related to: Unable to respond Patient Tobacco Use Status: Never used Tobacco Tobacco use type: Cigarette Use of substances other than those prescribed or required for medical reasons: Unknown Advance Directives: No Do you have a plan to hurt others: No Plan Recently lost weight without trying: Unsure service: No Meds Allergies Allergy/AdvReac Type Severity Reaction Status Date / Time No Known Allergies Allergy Unverified 11/29/23 12:42 [No Known Allergies*] Active Medications: Current Medications Acetaminophen (Acetaminophen 325 Mg Tablet) 650 mg PO Q4H PRN PRN Reason: Fever >/= 100, Pain, mild 1-3 Docusate Sodium (Docusate Sodium 100 Mg Capsule) 100 mg PO BID PRN PRN Reason: Constipation Docusate Sodium (Docusate Sodium 100 Mg Capsule) 100 mg PO BEDTIME HILDA Haloperidol Lactate (Haloperidol Lactate 5 Mg/Ml Vial) 0.5 mg IVPUSH Q4H PRN PRN Reason: Delirium Midazolam HCl (Midazolam Hcl Oral Syrup 5 Mg/2.5 Ml Syrup) 2 mg PO Q6H PRN PRN Reason: anxiety/restlessness Last Admin: 12/02/23 13:51 Dose: 2 mg Morphine Sulfate (Morphine Sulfate 2 Mg/Ml Cartridge) 2 mg IVPUSH Q2H HILDA Morphine Sulfate (Morphine Sulfate 2 Mg/Ml Cartridge) 2 mg IVPUSH Q2H [facility]; Protocol Stop: 12/03/23 01:46 Ondansetron HCl (Ondansetron Odt 4 Mg Tab.Rapdis) 4 mg TRANSLINGU Q8H PRN PRN Reason: Nausea and Vomiting Senna (Sennosides 8.6 Mg Tablet) 8.6 mg PO DAILY [facility] Last Admin: 12/02/23 07:45 Dose: Not Given Sodium Chloride (0.9 % Sodium Chloride Flush 3 Ml Syringe) 3 ml IVFLUSH QSHIFT [facility] Physical Exam Vital Signs and Narrative: Vital Signs: Last Vital Signs Temp 98.4 F 12/02/23 04:04 Pulse 72 12/02/23 04:04 Resp 18 12/02/23 19:33 BP 106/72 12/02/23 04:04 Pulse Ox 93 12/02/23 04:04 O2 Del Method Room Air 12/02/23 04:04 O2 Flow Rate 4 12/01/23 06:06 Oxygen Flow Rate 10 11/29/23 12:38 BMI result Body Mass Index 15.7 Constitutional - Lethargic. Open eyes upon calling his name, No apparent distress but looks uncomfortable. Afebrile. Cachexia. Constantly coughing. Eyes - atraumatic head. Dry oral mucosa. Heart - S1S2, RRR. Lungs - Normal lung expansion, poor respiratory effort, No respiratory distress. Bilateral rhonchi. Abdomen - Distended. Minimally depressible. Tenderness to palpation. Extremities - no calf tenderness bilaterally, no swelling Musculoskeletal - Atrophic. Skin - Warm/Dry Neurological - Lethargic. Psychological - Depressed affect Assessment and Plan (1) Cancer associated pain: Status: Acute (2) Liver cancer: Qualifiers: Liver malignancy type: unspecified liver malignancy Qualified Code(s): C22.9 - Malignant neoplasm of liver, not specified as primary or secondary Status: Acute (3) Hospice care patient: Status: Acute Plan Heber Oscar is a 63 years old man with end-stage liver cancer who will be admitted to the hospitalist service for comfort care only/inpatient hospice. I discussed plan with patient's health proxy who agreed with plan and confirmed patient is DNR/DNI. Quality Stroke Does the patient have a stroke diagnosis?: No VTE Prior VTE?: No VTE Risk Level:: Medical - moderate - high VTE Device Contraindication: Treatment Not Indicated VTE Drug Contraindication: Treatment Not Indicated
--- NOTE | 2023-12-02 21:46 | PC.NURSE ---
per , q2 Morphine order in at this time, request to not medicate pt if he is asleep.
--- NOTE | 2023-12-02 21:53 | PC.NURSE ---
this RN assessed pt pain at this time, pt denies pain, no acute distress noted.
--- OUTSIDE RECORDS SUMMARY | 2023-12-02 22:40 | XMS_ITS | Patient Health Record ---
Author Organization [facility] Address [address] [place] [id number] Care Team Providers Care Revenue Enforcement Collection Agent Name Role Phone MICHELE CALIXTO D.O Primary [...] azaTHIOprine 50 MG TAKE 2 TABLETS BY [facility] ONCE DAILY for 30 days Active [...] Notes Problem Elevated LFTs (R79.89) Active confirmed 831255638 Problem Chronic hepatitis C (B18.2) Active confirmed Chronic hepatit is C (389102234) Problem Liver lesion (K76.9) Active confirmed 454728925 Problem Abnormal MRI, liver (R93.2) Active confirmed 154356985 Problem History of hepatitis C (Z86.19) Active confirmed 99795216788671 Problem Abnormal CT scan, liver (R93.2) Active confirmed 63360909617914149 Problem Elevated lipase (R74.8) Active confirmed 013358719 Problem Crohn''s disease without complication, unspecified gastrointestinal tract location (K50.90) Active confirmed 60879494 Problem Crohn's disease without complication, unspecified gastrointestinal tract location (K50.90) Active confirmed 62628488 Problem C. difficile diarrhea (A04.72) Active confirmed 7586150989622 Problem Hepatocellular carcinoma (C22.0) Active confirmed 278247248 VITAL SIGNS Temperature 97.8 degrees Fahrenheit 11/13/2023 [...] 09/13 Encounters Encounter Location Date Provider Diagnosis [facility] [address] [place] [phone] 11/13/2023 Drew Monroy Jr Crohn''s disease without complication, unspecified gastrointestinal tract location K50.90 ; C. difficile diarrhea A04.72 and Hepatocellular carcinoma C22.0 [facility] [address] [place] [address] 11/12/2023 Drew Monroy Jr [facility] [address] [place] [address] 11/14/2023 Drew Monroy Jr [facility] [address] [place] [address] 11/14/2023 Drew Monroy ASSESSMENTS Encounter Date Diagnosis [...] Insured Coverage Start Date Coverage End Date [facility] [address] [address] [place], [place] [id number] PENNY FAUSTIN Self - patient is the insured MEDICAL (GENERAL) HISTORY Medical History History ICD Code COPD hepatitis C genotype 1A, F2 fibrosis 11/09, SVR s/p Harvoni x8 weeks, May 2020 Crohn's disease, colonic inv olvement, diagnosed? 2016, previous therapy with budesonide, colonoscopy 10/10; relative sparing of cecum and rectum, colonic involvement, restarted Imuran therapy 03/13, colonoscopy 08/17 at [place], normal terminal ileum, jean colitis, prednisone, azathioprine continued. Azathioprine stopped by patient in 2023, date unclear, restarted 11/14. Cirrhosis and hepatocellular carcinoma, diagnosed 09/13 ,most recent treatment with lenvatnib after initial treatment with atezolizdeedeeb, Dr. Ruiz. DVT Surgical History Surgery Date(Month/Year) knee surgery-left 2015
--- NOTE | 2023-12-02 23:00 | PC.NURSE ---
LITHOGRAPHER HELPER blanket and comfort measures placed in pt room at this time.
[2023-12-03] MEDS: 0.9 % Sodium Chloride Flush 3 ML SYRINGE IVFLUSH ×2 (00:16→07:24)
[2023-12-03] MEDS: Morphine Sulfate 2 MG/ML CARTRIDGE IVPUSH ×4 (02:31→07:24)
[2023-12-03 03:18] VITALS: BP 158/86; PULSE 120; RESP 15; TEMP 36.9; O2SAT 92
--- NOTE | 2023-12-03 03:32 | MHC.EDTECH ---
THIS PCT ASSUMED CARE OF PATIENT AT 0300 ,VITALS TAKEN AND PATIENT BELONGING LIST DONE .
[2023-12-03] MEDS: diazePAM 10 MG/2 ML CARTRIDGE 2.5 MG IVPUSH ×2 (05:15→11:43)
--- NOTE | 2023-12-03 08:13 | PHA.MEDREC ---
Pharmacy Consult ? Medication Reconciliation Pharmacy has completed the medication reconciliation. Called Whitney ([phone]) and confirmed meds. Patient only on ROLL TABLE OPERATOR at home.
[2023-12-03] MEDS: Morphine Sulfate/NS 100 MG/100 ML PLAST..BAG IVCONT (09:36)
--- NOTE | 2023-12-03 09:52 | PC.NURSE ---
Morphine gtt started at 0936 with booking agent per orders. Pump set to 90ml for volume so bad dose not run dry, 100ML in bag when started, tubing amount primed 3.4ML.
--- NOTE | 2023-12-03 10:17 | HO.PM.IMPN ---
Subjective Subjective Date of Service: 12/03/23 Interval History: in severe pain got 2 mg IV morphine q2h overnight only wish is to be comfortable at this point Review of Systems Review of Systems: Yes all other systems are reviewed and are negative Physical Exam Vital Signs: Vital Signs: Last Vital Signs Temp 98.4 F 12/03/23 03:18 Pulse 120 H 12/03/23 03:18 Resp 15 12/03/23 03:18 BP 158/86 H 12/03/23 03:18 Pulse Ox 92 12/03/23 03:18 O2 Del Method Room Air 12/03/23 03:18 O2 Flow Rate 4 12/01/23 06:06 Oxygen Flow Rate 10 11/29/23 12:38 BMI result Body Mass Index 15.7 Gen: in severe pain, uncomfortable, malnourished Lungs: clear to auscultation bilaterally Heart: tachycardic Abd: extremely tender Ext: no edema Skin: warm/well-perfused Neuro: alert and oriented x3, no focal findings Psych: appropriate affect Objective Data Active Medications Acetaminophen (Acetaminophen 325 Mg Tablet) 650 mg PO Q4H PRN PRN Reason: Fever >/= 100, Pain, mild 1-3 Diazepam (Diazepam 10 Mg/2 Ml Cartridge) 2.5 mg IVPUSH Q4H PRN PRN Reason: anxiety/restlessness Last Admin: 12/03/23 05:15 Dose: 2.5 mg Documented By: EVERTON Docusate Sodium (Docusate Sodium 100 Mg Capsule) 100 mg PO BID PRN PRN Reason: Constipation Docusate Sodium (Docusate Sodium 100 Mg Capsule) 100 mg PO BEDTIME [facility] Haloperidol Lactate (Haloperidol Lactate 5 Mg/Ml Vial) 0.5 mg IVPUSH Q4H PRN PRN Reason: Delirium Morphine Sulfate (Morphine Sulfate/Ns) 100 mg in 100 mls @ 0 mls/hr IVCONT .Q0M [facility]; Protocol Last Admin: 12/03/23 09:36 Dose: 2 mg/hr, 2 mls/hr Documented By: JUSTINE Loperamide HCl (Loperamide Hcl 2 Mg Capsule) 2 mg PO Q4H PRN PRN Reason: Diarrhea Midazolam HCl (Midazolam Hcl Oral Syrup 5 Mg/2.5 Ml Syrup) 2 mg PO Q6H PRN PRN Reason: anxiety/restlessness Last Admin: 12/02/23 13:51 Dose: 2 mg Documented By: CHUCK Ondansetron HCl (Ondansetron Odt 4 Mg Tab.Rapdis) 4 mg TRANSLINGU Q8H PRN PRN Reason: Nausea and Vomiting Senna (Sennosides 8.6 Mg Tablet) 8.6 mg PO DAILY [facility] Last Admin: 12/03/23 07:28 Dose: Not Given Documented By: JUSTINE Non-Admin Reason: pt having diarrhea Sodium Chloride (0.9 % Sodium Chloride Flush 3 Ml Syringe) 3 ml IVFLUSH QSHIFT [facility] Last Admin: 12/03/23 07:24 Dose: 3 ml Documented By: JUSTINE Assessment and Plan (1) Hospice care patient: Status: Acute (2) Liver cancer: Status: Acute Plan d2 63yo M with metastatic liver CA recently discharge to home hospice from [facility]; found to be wedged between his dresser and his bed by his employer who his is HCP; admitted for ASSISTANT TEACHER care - change to IV morphine drip, 2 mg/hr, may titrate to 10 mg/hr to achieve pain control goals - prn ondansetron, diazepam, and haloperidol IV for nausea/vomiting, anxiety, and agitation respectively - updated pt's HCP Total time managing care of this patient today: 35 minutes. Quality Stroke Does the patient have a stroke diagnosis?: No VTE Prior VTE?: No VTE Risk Level:: Medical - moderate - high VTE Device Contraindication: Treatment Not Indicated VTE Drug Contraindication: Treatment Not Indicated
[2023-12-03 11:02] VITALS: BMI 15.7
--- NOTE | 2023-12-03 11:05 | MHC.CLN ---
PT IS SEVERELY MALNOURISHED PT WITH SEVERELY DEPLETED SUBCUTANEOUS FAT AND MUSCLE MASS WITH BMI 15.7 PT WITH END STAGE LIVER CA RECENTLY D/C FROM HOSPITAL ON HOSPICE CARE. PT ADMITTED IN-PT ON HOSPICE CARE. PRIMARY GOAL IS COMFORT DIET RX: GRD M/S WITH NT LIQ-APPROPRIATE CAN CHANGE DIET TO FEED FROM FLOOR R/T RAILWAY SIGNAL ELECTRICIAN WILL FOLLOW WITH TEAM AND PROVIDE SUPPORT NEEDED SEE FULL CLINICAL NUTRITION ASSESSMENT
--- NOTE | 2023-12-03 11:09 | MHC.CM.PN ---
KRISTY DELIVERED TO HCP/FRIEND FABIEN . PT IS CURRENTLY TACKER ELASTIC BAND. PER FABIEN, DOES NOT HAVE A COPY OF HIS HCP. CM WILL TRY AND LOCATE AT LOCAL HOSPITALS.PT LETHARGIC AND UNABLE TO PARTICIPATE IN ASSESSMENT. CM WILL CONTINUE TO FOLLOW FOR PLAN.
[2023-12-03] MEDS: Scopolamine 1.5 MG PATCH.TD.3 EAR-BEHIND (12:36)
--- NOTE | 2023-12-03 13:38 | PC.NURSE ---
Per Hospice care nurse patients home will be [facility] , there is one main number on [employer], and they will call in a local [facility] facility.
--- NOTE | 2023-12-03 13:40 | MHC.SLORD ---
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 FLOOR RUNNER signing off, please re-consult if status changes.
[2023-12-03] MEDS: Nicotine 14 MG PATCH.TD24 TRANSDERMA (13:53)
--- NOTE | 2023-12-03 13:59 | MHC.CM.PN ---
THIS CM WAS CONTACTED BY [facility]OSPICE [facility]IMAL ATTENDANTS AND TRAINERS TO REPORT THEY WILL BE SIGNING PT ON TO [facility]. NOTIFIED.
--- NOTE | 2023-12-03 15:17 | PM.DS ---
DS: Providers Provider Date of Service: 12/03/23 Date of admission: 12/03/23 10:20 Date of discharge: 12/03/23 Primary care physician: Unknown Physician DS: Diagnosis Discharge Diagnosis (1) Hospice care patient: Status: Acute (2) Liver cancer: Status: Acute DS: Summary Hospital Course Hospital Course: From the history and physical by the admitting hospitalist, Jack York, 12/02/23: Heber Oscar is a 63 years old man with stage IV liver cancer that was brought to the emergency department 3 days ago after he fell. He was found by his health proxy wedge between his dresser and his bed. The patient was recently discharged from [facility] on hospice care. I spoke with patient's health proxy, Whitney Bell, and wishes Heber to be comfortable only. Mr. Bell was upset and expressed his concern as he feels Heber is not comfortable enough and wants him to receive morphine scheduled and not as needed. 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 for SENIOR INFORMATION SYSTEMS ARCHITECT care - change to IV morphine drip, 2 mg/hr, may titrate to 10 mg/hr to achieve pain control goals - prn ondansetron, diazepam, and haloperidol IV for nausea/vomiting, anxiety, and agitation respectively - updated pt's HCP - on 12/03/23 transitioned from inpatient to [facility] hosp[facility] Time Attestation Discharge Coordination Time (in mins): 35 Quality: Safe Use of Opioids Does Pt have an Active Cancer Diagnosis on the Problem List?: No Quality: Stroke Does the patient have a stroke diagnosis?: No Physical Exam Vital Signs: Vital Signs: Last Vital Signs Temp 98.4 F 12/03/23 03:18 Pulse 120 H 12/03/23 03:18 Resp 15 12/03/23 03:18 BP 158/86 H 12/03/23 03:18 Pulse Ox 92 12/03/23 03:18 O2 Del Method Room Air 12/03/23 03:18 O2 Flow Rate 4 12/01/23 06:06 Oxygen Flow Rate 10 11/29/23 12:38 BMI result Body Mass Index 15.7 Gen: in severe pain, uncomfortable, malnourished Lungs: clear to auscultation bilaterally Heart: tachycardic Abd: extremely tender Ext: no edema Skin: warm/well-perfused Neuro: alert and oriented x3, no focal findings Psych: appropriate affect Discharge Plan Discharge Anticipated Discharge Date/Time: 12/03/23 14:16 Patient Disposition: Hospice - Medical Facility Discharge Diagnosis: metastatic liver cancer, cancer-associated pain Referrals: Physician,Unknown J [Primary Care Provider] - 1 Week Discharge Medications: New acetaminophen 325 mg Tablet 650 mg PO Q4H PRN (Reason: Fever >/= 100, Pain, mild 1-3) Qty: 1 0RF nicotine 14 mg/24 hr Patch 24 Hour 14 mg transdermal DAILY Qty: 1 0RF morphine in 0.9 % sodium chlor 1 mg/mL Solution 100 mg continuous IV infusion .Q0M Qty: 1 0RF Rx Instructions: Partial Fill upon patient request. haloperidol lactate 5 mg/mL Solution 0.5 mg IVPUSH Q4H PRN (Reason: Delirium) Qty: 1 0RF diazepam 5 mg/mL Syringe 2.5 mg IVPUSH Q4H PRN (Reason: Anxiety/Restlessness) Qty: 1 0RF scopolamine base [Transderm-Scop] 1 mg over 3 days Patch 3 Day 1.5 mg EAR-BEHIND Q72H Qty: 1 0RF ondansetron HCl (PF) 4 mg/2 mL Solution 4 mg IVPUSH Q4H PRN (Reason: nausea/vomiting) Qty: 1 0RF Discontinued haloperidol 0.5 mg tablet 0.5 mg PO Q4H PRN (Reason: Sedation) morphine concentrate 100 mg/5 mL (20 mg/mL) solution 5 mg PO Q1H PRN (Reason: dyspnea/pain) morphine 15 mg tablet 15 mg PO Q3H PRN (Reason: Pain) lorazepam 2 mg/mL concentrate 0.5 mg PO Q4H PRN (Reason: dyspnea) Discharge Orders: Discharge Order (Routine); Ordered 12/03/23 Ordered By: Charo Del Rosario Diet: Advance to usual diet Activity on Discharge: As tolerated Stand Alone Forms: Patient Portal Discharge page Print Language: Martiniquais Care Plan Goals: comfort measures Health Concerns: metastatic liver cancer, cancer-associated pain Plan of Treatment: continue hospice care in hospital with IV medications Assessment: See Discharge Summary. Discharge Date/Time: 12/03/23 14:27
== END 2023-12-03 14:27 | disposition hospice, inpatient (51) | DRG 862 ==
LOC: HO.ED 12-02 13:00 → HO.EDOVER 12-02 22:37 → HO.S3 12-03 01:16
PROVIDERS: Admitting Provider Internal Medicine; Emergency Provider Emergency Medicine; PCP Internal Medicine; Visit Provider Family Medicine
DX: Z51.5 Encounter for palliative care (principal); C22.8 Malignant neoplasm of liver, primary, unspecified as to type; E88.A Wasting disease (syndrome) due to underlying condition; W19.XXXA Unspecified fall, initial encounter; G89.3 Neoplasm related pain (acute) (chronic); Z79.899 Other long term (current) drug therapy
CPT/HCPCS: 99285; J2270; J3360

== ENCOUNTER 2023-12-03 15:01 | Inpatient (IN) | payer OTHER, SELFPAY ==
--- OUTSIDE RECORDS SUMMARY | 2023-12-03 15:09 | XMS_ITS | Patient Health Record ---
Author Organization [facility] Address [address] [place] [address] Care Team Providers Care Drilling Field Specialist Name Role Phone MICHELE CALIXTO D.O Primary [...] azaTHIOprine 50 MG TAKE 2 TABLETS BY [facility] ONCE DAILY for 30 days [...] Notes Problem Elevated LFTs (R79.89) Active confirmed 447355067 Problem Chronic hepatitis C (B18.2) Active confirmed Chronic hepatit is C (159127175) Problem Liver lesion (K76.9) Active confirmed 172358426 Problem Abnormal MRI, liver (R93.2) Active confirmed 826397836 Problem History of hepatitis C (Z86.19) Active confirmed 43894724849263 Problem Abnormal CT scan, liver (R93.2) Active confirmed 02817689662286673 Problem Elevated lipase (R74.8) Active confirmed 907360256 Problem Crohn''s disease without complication, unspecified gastrointestinal tract location (K50.90) Active confirmed 13762681 Problem Crohn's disease without complication, unspecified gastrointestinal tract location (K50.90) Active confirmed 50275212 Problem C. difficile diarrhea (A04.72) Active confirmed 2600845657793 Problem Hepatocellular carcinoma (C22.0) Active confirmed 269083815 VITAL SIGNS Temperature 97.8 degrees Fahrenheit 11/13/2023 [...] 09/13 Encounters Encounter Location Date Provider Diagnosis [facility] [address] [place] [phone] 11/13/2023 Drew Monroy Jr Crohn''s disease without complication, unspecified gastrointestinal tract location K50.90 ; C. difficile diarrhea A04.72 and Hepatocellular carcinoma C22.0 [facility] [address] [place] [address] 11/12/2023 Drew Monroy Jr [facility] [address] [place] [address] 11/14/2023 Drew Monroy Jr [facility] [address] [place] [address] 11/14/2023 Drew Monroy ASSESSMENTS Encounter Date Diagnosis [...] Insured Coverage Start Date Coverage End Date [facility] [address] [address] [place], [place] [id number] PENNY FAUSTIN Self - patient is the insured MEDICAL (GENERAL) HISTORY Medical History History ICD Code COPD hepatitis C genotype 1A, F2 fibrosis 11/09, SVR s/p Harvoni x8 weeks, May 2020 Crohn's disease, colonic inv olvement, diagnosed? 2016, previous therapy with budesonide, colonoscopy 10/10; relative sparing of cecum and rectum, colonic involvement, restarted Imuran therapy 03/13, colonoscopy 08/17 at [place], normal terminal ileum, jean colitis, prednisone, azathioprine continued. Azathioprine stopped by patient in 2023, date unclear, restarted 11/14. Cirrhosis and hepatocellular carcinoma, diagnosed 09/13 ,most recent treatment with lenvatnib after initial treatment with atezolizdeedeeb, Dr. Ruiz. DVT Surgical History Surgery Date(Month/Year) knee surgery-left 2015
--- NOTE | 2023-12-03 15:13 | PM.IMHP ---
History of Present Illness Date of Service: 12/03/23 Chief Complaint: hospice care From the history and physical by the admitting hospitalist, Jack York, 12/02/23: Heber Oscar is a 63 years old man with stage IV liver cancer that was brought to the emergency department 3 days ago after he fell. He was found by his health proxy wedge between his dresser and his bed. The patient was recently discharged from [facility] on hospice care. I spoke with patient's health proxy, Whitney Bell, and wishes Heber to be comfortable only. Mr. Bell was upset and expressed his concern as he feels Heber is not comfortable enough and wants him to receive morphine scheduled and not as needed. Initially admitted to inpatient service; transitioned to [facility] hospice 12/03/23 Review of Systems Review of Systems: Yes all other systems are reviewed and are negative [facility] History Liver cancer Social History Unable to assess alcohol history related to: Unable to respond Patient Tobacco Use Status: Never used Tobacco Advance Directives: No service: No Meds Allergies Allergy/AdvReac Type Severity Reaction Status Date / Time No Known Allergies Allergy Unverified 11/29/23 12:42 [No Known Allergies*] Active Medications: Current Medications Acetaminophen (Acetaminophen 325 Mg Tablet) 650 mg PO Q6H PRN PRN Reason: Pain, Mild (Pain Scale 1-3) Diazepam (Diazepam 10 Mg/2 Ml Cartridge) 2.5 mg IVPUSH Q2H PRN PRN Reason: anxiety Haloperidol Lactate (Haloperidol Lactate 5 Mg/Ml Vial) 0.5 mg IVPUSH Q4H PRN PRN Reason: agitation Morphine Sulfate (Morphine Sulfate/Ns) 100 mg in 100 mls @ 0 mls/hr IVCONT .Q0M [facility]; Protocol Nicotine (Nicotine 14 Mg Patch.Td24) 14 mg TRANSDERMA DAILY [facility] Scopolamine (Scopolamine 1.5 Mg Patch.Td.3) 1.5 mg EAR-BEHIND Q72H [facility] Sodium Chloride (0.9 % Sodium Chloride Flush 3 Ml Syringe) 3 ml IVFLUSH QSHIFT [facility] Physical Exam Vital Signs and Narrative: Vital Signs: Gen: in severe pain, uncomfortable, malnourished Lungs: clear to auscultation bilaterally Heart: tachycardic Abd: extremely tender Ext: no edema Skin: warm/well-perfused Neuro: alert and oriented x3, no focal findings Psych: appropriate affect Assessment and Plan (1) Liver cancer: Status: Acute (2) Cancer associated pain: Status: Acute Plan 63yo M with metastatic liver CA recently discharge to home hospice from [facility]; found to be wedged between his dresser and his bed by his employer who his is HCP; admitted for STATISTICAL REPORTING ANALYST care - change to IV morphine drip, 2 mg/hr, may titrate to 10 mg/hr to achieve pain control goals - prn ondansetron, diazepam, and haloperidol IV for nausea/vomiting, anxiety, and agitation respectively - updated pt's HCP - on 12/03/23 transitioned from inpatient to [facility] hospice Quality Stroke Does the patient have a stroke diagnosis?: No VTE Prior VTE?: No VTE Risk Level:: Medical - moderate - high VTE Device Contraindication: Treatment Not Indicated VTE Drug Contraindication: Treatment Not Indicated
[2023-12-03] MEDS: Morphine Sulfate/NS 100 MG/100 ML PLAST..BAG IVCONT (15:54)
--- NOTE | 2023-12-03 16:18 | PC.NURSE ---
Pt was DC in system and re-admitted as [facility] Hospice/CARPENTERS HELPER. Morphine gtt started on this shift at 0936 this AM with sample grader. Volume in pump set to 90ml so bag would not run dry (actual volume in bag 100ml), tubing amount primed 3.4ML. Due to change in registration, morphine gtt had to be re-scanned in for 15:54, MAR would not allow this RN to change time to 0936. Per Pedro Sanabria Pharmacist, scan medication for this time but provide note. Rate and dose of Morphine gtt remains the same, 2ml/2mg per hour. Per Pharmacist, at 24 hour rahul or bag change, waste must be completed with paper pharmacy waste form , as the pyxis will not recognize current morphine bag due to registration changes.
[2023-12-03 16:42] VITALS: BMI 17.6
[2023-12-03] MEDS: diazePAM 10 MG/2 ML CARTRIDGE 2.5 MG IVPUSH (17:26)
[2023-12-04] MEDS: diazePAM 10 MG/2 ML CARTRIDGE 2.5 MG IVPUSH (02:12)
--- NOTE | 2023-12-04 02:21 | PC.NURSE ---
Patient still complaining of pain after previous RN changed dose of PLANNING DIRECTOR around 2330 to 4mg/hr, I also increased PLANNING DIRECTOR dose at 0200 to 6mg/hr, patient stated pain is 10/10. He is very restless, thirsty. Taking PO water. Spilling water multiple times, sitting at edge of bed setting alarm off, incontinent, anxious. Camera placed in room for safety. Charge nurse admin Valium for patient's restlessness and comfort approx 0200 as well.
[2023-12-04] MEDS: Nicotine 14 MG PATCH.TD24 TRANSDERMA (08:27)
--- NOTE | 2023-12-04 09:40 | MHC.CLN ---
NUTRITION PT IS SEVERELY MALNOURISHED PT WITH SEVERELY DEPLETED SUBCUTANEOUS FAT AND MUSCLE MASS WITH BMI 15.7 PT WITH END STAGE LIVER CA RECENTLY D/C FROM HOSPITAL ON HOSPICE CARE. PT ADMITTED IN-PT ON HOSPICE CARE. PRIMARY GOAL IS COMFORT DIET RX: GRD M/S WITH NT LIQ-APPROPRIATE CAN CHANGE DIET TO FEED FROM FLOOR R/T SHORT ORDER FRY COOK WILL FOLLOW WITH TEAM AND PROVIDE SUPPORT NEEDED SEE FULL CLINICAL NUTRITION ASSESSMENT 12/03/23
--- NOTE | 2023-12-04 09:44 | MHC.CM.PN ---
PATIENT IS UNABLE TO PARTICIAPTE IN MEANGFUL CONVERSATION AT THIS TIME. PAIN MANAGEMENT PROTOCOLS IN PLACE. NO FAMILY OR FRIENDS IN ROOM ATTHIS TIME. NO HCP ON FILE. CASE MANAGEMENT NAME WRITTEN ON WHITE BOARD. CM TO RETURN IF FAMILY ARRIVES PATIENT IS UNDER [facility] H[facility]PICE WITH [facility].
--- NOTE | 2023-12-04 10:28 | MHC.CM.PN ---
HCP RECEIVED AND UPLOADED INTO [employer]. COPY PLACED IN CHART FOR MEDICAL RECORD
--- NOTE | 2023-12-04 10:51 | MHC.CM.PN ---
PCP IS BRENNON MELÉNDEZ. CM OFFICE UPDATED
--- NOTE | 2023-12-04 11:04 | P.PNIM_ITS ---
Subjective Subjective Date of Service: 12/04/23 Interval History: appears comfortable on morphine gtt 6 mg/hr Review of Systems Review of Systems: Yes Unobtainable due to mental status Physical Exam Vital Signs: Vital Signs: BMI result Body Mass Index 17.6 Gen: malnourished, chronically ill, in NAD Lungs: clear to auscultation bilaterally Heart: regular rate/rhythm Abd: soft Ext: no edema Skin: warm/well-perfused Neuro: somnolent Objective Data Active Medications Acetaminophen (Acetaminophen 325 Mg Tablet) 650 mg PO Q6H PRN PRN Reason: Pain, Mild (Pain Scale 1-3) Diazepam (Diazepam 10 Mg/2 Ml Cartridge) 2.5 mg IVPUSH Q2H PRN PRN Reason: anxiety Last Admin: 12/04/23 02:12 Dose: 2.5 mg Documented By: ISMA Haloperidol Lactate (Haloperidol Lactate 5 Mg/Ml Vial) 0.5 mg IVPUSH Q4H PRN PRN Reason: agitation Morphine Sulfate (Morphine Sulfate/Ns) 100 mg in 100 mls @ 0 mls/hr IVCONT .Q0M [facility]; Protocol Last Infusion: 12/04/23 02:12 Dose: 6 mg/hr, 6 mls/hr Documented By: SALVADOR Nicotine (Nicotine 14 Mg Patch.Td24) 14 mg TRANSDERMA DAILY [facility] Last Admin: 12/04/23 08:27 Dose: 14 mg Documented By: AGGIE Scopolamine (Scopolamine 1.5 Mg Patch.Td.3) 1.5 mg EAR-BEHIND Q72H [facility] Last Admin: 12/03/23 15:35 Dose: Not Given Documented By: JUSTINE Non-Admin Reason: Previously Administered Sodium Chloride (0.9 % Sodium Chloride Flush 3 Ml Syringe) 3 ml IVFLUSH QSHIFT [facility] Last Admin: 12/04/23 08:27 Dose: Not Given Documented By: AGGIE Non-Admin Reason: IV Running Assessment and Plan (1) Hospice care patient: Status: Acute (2) Liver cancer: Status: Acute Plan d3 63yo M with metastatic liver CA recently discharged to home hospice from [facility]; found to be wedged between his dresser and his bed by his employer who his is HCP; admitted for CLAY CARMAN care - continue morphine IV drip - prn ondansetron, diazepam, and haloperidol IV for nausea/vomiting, anxiety, and agitation respectively Total time managing care of this patient today: 25 minutes. Quality Stroke Does the patient have a stroke diagnosis?: No VTE Prior VTE?: No VTE Risk Level:: Medical - moderate - high VTE Device Contraindication: Treatment Not Indicated VTE Drug Contraindication: Treatment Not Indicated
[2023-12-04 12:46] VITALS: RESP 9
[2023-12-04] MEDS: Morphine Sulfate/NS 100 MG/100 ML PLAST..BAG 6 MG IVCONT (12:46)
[2023-12-04 20:46] VITALS: RESP 5
--- NOTE | 2023-12-04 22:10 | PM.EVENT ---
Event Note Date of Service: 12/05/23 Event Note: note I was contacted to patient's bedside to pronounce that Mr. Heber Oscar has .? No spontaneous movements were present.? There was not respond to tactile stimuli.? Pupils were mid dilated and fixed.? No breath sounds were appreciated over either lung.? No carotid pulses were palpable.? No heart sounds were auscultated over entire pericardium.? Patient pronounced December 04, 2023 at 9:43 PM. Patient was DNR and DNI on comfort care.? No autopsy.? Patient's health proxy, Whitney, was notified and our condolences were provided to him. Time Spent With Patient Time: Total time managing care of this patient today ____ minutes.
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
== END 2023-12-04 21:40 | disposition expired | DRG 951 ==
PROVIDERS: Admitting Provider Family Medicine; PCP Internal Medicine; Visit Provider Family Medicine
DX: Z51.5 Encounter for palliative care (principal); C22.9 Malignant neoplasm of liver, not specified as primary or secondary; G89.3 Neoplasm related pain (acute) (chronic); Z79.899 Other long term (current) drug therapy
CPT/HCPCS: J2270; J3360

== ENCOUNTER → 2023-12-03 15:01 | Outpatient (BNV) | payer OTHER, SELFPAY | PROVIDERS: Admitting Provider Family Medicine; Visit Provider Family Medicine | DX: Z51.5 Encounter for palliative care (principal); C22.9 Malignant neoplasm of liver, not specified as primary or secondary | CPT/HCPCS: 99239; 99499 ==